=== PATIENT | male | born 1960 | race Caucasian/White ===

== ENCOUNTER 2021-02-10 13:27 | Outpatient (CLI) | payer SELFPAY ==
--- NOTE | 2021-02-10 13:39 | MR_ITS ---
WS: [id number] MRI LUMBAR SPINE NONCONTRAST TECHNIQUE: Sagittal T1, T2 and STIR imaging. Axial T1 and T2 imaging. CLINICAL INFORMATION: OTHER INTERVERTEBRAL DISC DEGENERATION, LUMBAR REGION COMPARISON: None. FINDINGS: Mild lumbar curve. No acute compression. No high-grade central canal stenosis. L1-L2: Mild annular bulging. Spinal canal and foramen are patent. L2-L3: Mild annular bulging. Mild facet arthropathy. Spinal canal and foramen are patent. L3-L4: Mild annular bulging with slight effacement of ventral thecal sac. Mild facet arthropathy. Mil d left and no significant right foraminal narrowing. L4-L5: Mild annular bulging with slight narrowing of the subarticular recess bilaterally. Slight cont act of the traversing L5 nerve roots. Moderate facet arthropathy. Small bilateral foraminal protrusio ns with mild left greater than right foraminal narrowing. Slight impingement on the exiting left L4 n erve root. L5-S1: Small lobulated synovial cyst measuring 6 x 8 mm impinges the left subarticular recess and tra versing left S1 nerve root. Moderate facet arthropathy with small facet effusions. Mild left and no s ignificant right foraminal narrowing. Small amount of periarticular edema about the left L5-S1 facets Visualized pelvic bony structures: Normal. Paravertebral soft tissues: Normal. MR/MR lumbar spine wo con* [id number] IMPRESSION: 1. 6 x 8 mm left L5-S1 synovial cyst impinges the traversing left S1 nerve keesha t in the subarticular recess. Recommend correlation left S1 nerve root symptoms . 2. Mild left L5-S1 foraminal narrowing. 3. Mild annular bulging L4-5 with slight narrowing of the subarticular recess bilaterally. 4. Left foraminal protrusion impinges the exiting left L4 nerve root with mode rate left foraminal narrowing. Correlation left L4 nerve root symptoms. 5. Moderate facet arthropathy L4-L5 and L5-S1. Small bilateral facet effusions L5-S1 with a small amount of left periarticular edema.
--- NOTE | 2021-02-10 14:33 | CT_ITS ---
WS: [id number] CTA THORACIC TECHNIQUE: Contrast enhanced CTA of the thoracic aorta with coronal and sagittal reformatted images a nd maximum intensity projection (MIP) images. CLINICAL INFORMATION: THORACIC AORTIC ECTASIA COMPARISON: None. DLP: 1547.[address] scans at [facility] use at least one of these dose optimization techniques: automated e xposure control; mA and/or kV adjustment per patient size (includes targeted exams where dose is matc hed to clinical indication); or iterative reconstruction. FINDINGS: Normal caliber ascending thoracic aorta measuring 3.2 CM. Normal caliber descending thoracic aorta. N ormal upper abdominal aorta. Proximal main pulmonary arteries are normal caliber. No evidence of diss ection or intramural hematoma. No mediastinal or hilar lymphadenopathy. Mild chronic emphysematous changes. No acute pulmonary infil trates. No focal pneumonia or pleural fluid. Noncalcified pulmonary nodule right upper lobe measuring 4 mm. Additional 3 mm noncalcified pulmonary nodule right upper lobe subpleural in location. Tiny ad ditional 2 mm subpleural noncalcified pulmonary nodule right lower lobe. Tiny noncalcified nodule in the lingula. Adrenal glands are normal. Small left upper pole renal cyst measuring 1.5 cm. Normal GE junction. Diffuse fatty infiltration the liver. Normal celiac and SMA. Proximal main renal arteries are normal. . CT/CT angio chest [id number] IMPRESSION: 1. Normal caliber ascending thoracic aorta measuring 3.2 cm. No thoracic aorti c aneurysm. Descending thoracic aorta is normal in caliber. 2. Lungs are well aerated. No acute pulmonary infiltrates. No focal pneumonia or pleural fluid. 3. A few subcentimeter noncalcified pulmonary and subpleural nodules the large st in the right upper lobe measuring 4 mm. Recommend 12 month follow-up. 4. Left upper pole renal cyst measuring 1.5 cm.
[2021-02-10] MEDS: iohexol 350 mg/mL 100 mL Btl IV (14:58)
== END 2021-02-10 13:28 | disposition home or self-care (01) ==
PROVIDERS: Visit Provider Physician Assistant
DX: M51.36 Other intervertebral disc degeneration, lumbar region (principal); I77.810 Thoracic aortic ectasia; R91.8 Other nonspecific abnormal finding of lung field; Q61.01 Congenital single renal cyst; M71.38 Other bursal cyst, other site; M51.26 Other intervertebral disc displacement, lumbar region; M47.816 Spondylosis without myelopathy or radiculopathy, lumbar region; M47.817 Spondylosis without myelopathy or radiculopathy, lumbosacral region
CPT/HCPCS: 71275; 72148; Q9967

== ENCOUNTER 2023-09-06 06:00 | Outpatient (RCR) | payer BC, SELFPAY | END 2023-09-26 23:59 | disposition home or self-care (01) | LOC: MPT 06:00 | PROVIDERS: Visit Provider Physician Assistant | DX: M70.62 Trochanteric bursitis, left hip (principal) | CPT/HCPCS: 97110; 97162; G0283 ==

== ENCOUNTER 2023-09-27 06:00 | Outpatient (RCR) | payer BC, SELFPAY | END 2023-10-27 23:59 | disposition home or self-care (01) | LOC: MPT 06:00 | PROVIDERS: Visit Provider Physician Assistant | DX: M70.62 Trochanteric bursitis, left hip (principal) | CPT/HCPCS: 97110; 97530 ==

== ENCOUNTER → 2025-03-31 09:59 | Outpatient (BNVA) | payer BC, SELFPAY | PROVIDERS: Visit Provider Orthopaedic Surgery | DX: M16.12 Unilateral primary osteoarthritis, left hip (principal) | CPT/HCPCS: 73523 ==

== ENCOUNTER 2025-04-30 15:31 | Observation (INO) | payer BC, SELFPAY ==
[2025-04-30] VITALS (15 sets, daily range): BP systolic 112–161; BP diastolic 69–104; PULSE 75–92; RESP 16–18; TEMP 36.1–36.8; O2SAT 91–97; BMI 30.6
--- NOTE | 2025-04-30 08:40 | ECG_ITS ---
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 Measurements Intervals [place] Rate: 66 P: 65 ID: [id number] QRS: -14 QRSD: 102 T: 36 QT: 404 QTc: 423 Interpretive Statements SINUS RHYTHM No previous ECG available for comparison Electronically Signed On 04-30-2025 23:51:14 RECYCLING SPECIALIST by Aicha Ace M.D. [email or web address]
--- NOTE | 2025-04-30 08:41 | W.PM.OPSUD ---
Surgery/Procedure H&P Update DATE OF PROCEDURE: April 30, 2025 DATE H&P PERFORMED: 04/29/25 H&P UPDATE INFORMATION: I have reviewed H&P completed within last 30 days, I have examined patient prior to procedure and No changes to prior documentation PLANNED PROCEDURE: Operation Date: 04/30/25 09:40 Proposed Procedures p LEFT Total Hip Arthroplasty(Left) - Frank Villagran MD
--- NOTE | 2025-04-30 08:43 | ANES.PREANE2 ---
Pre-Anesthetic Assessment Height/Weight: Height 1.83 m Weight 102.512 kg Temp Pulse Resp BP Pulse Ox O2 Del Method 97.1 F L 75 18 135/77 95 Room Air 04/30/25 07:32 04/30/25 07:32 04/30/25 07:32 04/30/25 07:32 04/30/25 07:32 04/30/25 07:32 Operation Date: 04/30/25 09:40 Proposed Procedures p LEFT Total Hip Arthroplasty(Left) - Frank Villagran MD Familial anesthetic complications: None Was Beta Nano taken within 24 hours: Yes Was Clonidine taken within 24 hours: N/A Last intake: Intake Last Liquid Date 04/29/25 Last Liquid Time 22:30 Last Solid Date 04/29/25 Last Solid Time 19:00 Social Alcohol (up to 8 beers a night) and Tobacco Exam alert, oriented x 3, clear to auscultation bilaterally and regular rate & rhythm Airway Mallampati: Class III Dentition: chipped Comments: Comments: minor CV/HEM Hypertension Patient states past history chest pains, seen cardiology and they adjusted his medications per patient, Denies any chest pains in the last three years Anesthetic Plan ASA status: 3 Anesthesia: General Risk of > 500 ml blood loss (7ml/kg in children): No Medications/Allergies Home Medications ?Medication ?Instructions ?Recorded ?Confirmed ?Last Taken ?Type nitroglycerin 0.4 mg sublingual 0.4 mg sublingual Q5M PRN Chest 03/08/21 04/30/25 Unknown History tablet Pain atorvastatin 10 mg tablet 10 mg PO DAILY 03/31/25 04/30/25 04/29/25 History carvedilol 12.5 mg tablet 12.5 mg PO BID 03/31/25 04/30/25 04/30/25 History lisinopril 40 mg tablet 40 mg PO DAILY 03/31/25 04/30/25 04/29/25 History Allergies Allergy/AdvReac Type Severity Reaction Status Date / Time No Known Allergies Allergy Unverified 03/31/25 10:08 Current Medications Generic Name Dose Route Start Last Admin Trade Name Freq PRN Reason Stop Dose Admin Sodium Chloride 1,000 mls @ 30 mls/hr 04/30/25 07:30 04/30/25 07:44 Sodium Chloride 0.9% IV 05/01/25 07:29 30 mls/hr .Q24H NAOMIE Administration PFSH Anesthesia Medical History Tobacco abuse Hyperlipidemia Hypertension History of chest pain Surgical History S/P hernia surgery Family History Other Hypertension Social History Smoking and tobacco/nicotine status: current every day tobacco/nicotine user Alcohol intake: current Alcohol intake frequency: 3 or more drinks per day Substance/Drug Use: never
[2025-04-30] MEDS: ceFAZolin 2,000 mg SDV 2000 MG IVP ×2 (09:35→17:00)
[2025-04-30] MEDS: tranexamic acid 1,000 mg/10mL SDV 1000 MG IV (10:00)
[2025-04-30] MEDS: ceFAZolin 1,000 mg SDV 1000 MG IRRIGATION (10:40)
[2025-04-30] MEDS: BUPivacaine liposome 13.3 mg/mL SDV 20 mL 266 MG INFILTRATI (11:49)
[2025-04-30] MEDS: BUPivacaine 0.5% INJ 30 mL 20 ML INJECTION (11:49)
--- NOTE | 2025-04-30 11:51 | XRR_ITS ---
PROCEDURE INFORMATION: Exam: XR Left Hip Exam date and time: 04/30/2025 1:23 PM Age: 64 years old Clinical indication: Device placement; Other: Left total hip arthroplasty; Prior surgery; Surgery date: Post-operative (0-2 days) TECHNIQUE: Imaging protocol: Radiologic exam of the left hip. Views: 1 view hip with pelvis when performed. COMPARISON: CR XR hip BI m 5V wo/w pel* [id number] 03/31/2025 10:01 AM FINDINGS: Bones/joints: Status post left total hip arthroplasty. Hardware is intact. Soft tissues: Unremarkable. XR/XR hip LT 1V wo/w pel [id number] IMPRESSION: Status post left hip arthroplasty with intact hardware.
--- NOTE | 2025-04-30 12:09 | P.OP_ITS ---
Operative Report Date of procedure: April 30, 2025 Surgeon: Frank Villagran MD Procedure: Preoperative diagnosis: End-stage degenerative joint disease left hip Postoperative diagnosis: Same Procedure: Left total hip arthroplasty Surgeon: Frank Villagran MD Lead Technical Architect: YORDY Santos's assistance was necessary for positioning the patient, assistance during the procedure, wound closure and dressing placement Anesthesia: General EBL: 120 cc Complications: None Indications: Grant is a 64-year-old white male was seen in the orthopedic clinic for debilitating left hip pain. Patient had failed all conservative measures. X-rays demonstrated [id number] presentation of the the femoral head and acetabulum. There is subchondral cysts as well as sclerosis noted on each side of the joint line. Patient had loss of internal and external rotation. Patient was unable to cross legs and could just get to 90 degrees for sitting position. Therefore this time patient was offered left total hip arthroplasty. All risk benefits treatment alternatives were discussed and the patient was agreeable to this at this time. Procedure: After obtaining written consent patient taken to the operating room placed the op table supine position general anesthetic administered. Once good anesthesia achieved patient placed up in a lateral decubitus position with left hip up. He was held in place on a pegboard that was padded appropriately. Left hip and leg were prepped and draped usual fashion. At this time surgical timeout was undertaken. Hip was then flexed to 90 degrees and a minimally invasive posterior lateral incision was made over the proximal greater trochanter. Sharp dissected gone down to subcutaneous tissue electrocautery was for hemostasis. Electrocautery was used for dissection all the way down through the IT band along the course of the lateral femur. Leg was internally rotated and dissect was taken down along the posterior aspect of the greater trochanter raising all soft tissues from it all the way down the femoral neck. Femoral neck capsule was then divided in a T-type fashion to expose the femoral head. With gentle internal rotation and traction the hip was dislocated. Appropriate deep retractors were placed that were self retainers. Proximal femur was templated for femoral neck cut and then using a sagittal saw femoral neck cut was made without any difficulties. At this point retractor was placed down to the anterior inferior lip of the acetabulum to hold the femur out from covering the acetabulum. Long handled 10 blade was then used to remove the labrum of the acetabulum. This was then reamed starting at a size 50 reamer and going up to a size 56 reamer in 1 mm increments. Reaming was done until good bleeding bone was found circumferentially within the acetabulum. All soft tissues have been sharply debrided out of the area also. Size 56 acetabular cup which is in place and impacted. Subsequently attempts were made to place the 10 degree high wall liner where having difficulties with this. Subsequently incision had to be extended to be able to visualize the acetabulum better and this was done distally. Electrocautery used for hemostasis. Once visualized it was felt that the acetabular cup was not anteverted enough and therefore extractor was applied to the acetabular cup and it was removed repositioned and impacted into the acetabulum better position. Once confirmed it was solid within the acetabulum 10 degree liner was then placed in the cup and easily secured within the acetabular cup. During this time multiple washings of pulse lavage irrigation was done while preparing the acetabulum and placed in the cup. Attention was turned towards the proximal femur. Appropriate retractor placed there. Leg was held in 90 degrees internally rotated. Box cut osteotome was used to make entry point. Power reaming was done to do the proximal lateralization. Broaching was then done starting with a 0 broach and going up to size 3 before adequate fit and fill. At this point a permanent size 3 femoral stem was placed and impacted in the proximal femur with appropriate anteversion. Once in place trial of femoral head and necks were trialed. First a standard 36 mm head with a standard neck. This was placed put within the acetabulum and hip was put to range of motion found to be stable in all positions. He had very tight abductors though. Leg lengths appear to be slightly short on the operative side and therefore hip was dislocated and a trial size +5 neck was placed and hip was reduced and found to have adequate stability and range of motion as well as improve leg length matching to the opposite leg. Hip was dislocated again and trial component removed. Area was washed closed by sterile irrigation. Is cleaned and dried and a permanent ceramic 36 mm head with a +5 neck placed on the Vasquez taper of the femoral component and impacted. Hip was reduced and again put through range of motion found to be stable. Knee bump was placed in between the legs to abduct the left leg. With slight internal rotation capsule was repaired with #1 Vicryl fhmmmh-xw-qngni sutures. Piriformis was repaired back to the greater trochanter through bone tunnels with a #5 Ethibond exjiln-xu-uorqb suture. Areas washed again. Deep retractors were removed. Deep fascia was reapproximated with #1 Vicryl dlrwfo-wg-quniz sutures. At this point local anesthetic was administered to the deep incision which included 20 cc of Exparel, 20 cc of bupivacaine, and 50 cc of saline mixed together for anesthetic effect. All this was placed within the soft tissues of the incision line. Subcutaneous tissue reapproximated 0 Vicryl interrupted sutures and skin was closed with skin chantel. Appropriate Silverlon dressing was placed on this. Patient was awakened and placed in a abduction pillow and onto a hospital bed. He was transferred to the recovery room in stable condition.
--- NOTE | 2025-04-30 13:01 | ANE.PACU2 ---
Inpatient post-anesthesia follow up: Airway intact: Yes Vital signs: Temperature 97 F Pulse Rate 77 Respiratory Rate 16 Blood Pressure 143/84 Pulse Oximetry 93 Oxygen Delivery Me thod Room Air Oxygen Flow Rate Fraction of Inspir ed Oxygen Hydration adequate: Yes Nausea and vomiting: No Pain level: 1 Mental status: Baseline
[2025-04-30] MEDS: HYDROcodone-acetaminophen 5-325 mg Tablet 1 TAB PO (14:40)
[2025-04-30] MEDS: mupirocin oint 22 gm 1 APPLIC NASAL (16:58)
[2025-04-30] MEDS: sennosides-docusate Tablet 2 TAB PO (16:59)
[2025-04-30] MEDS: chlorhexidine gluconate 0.12% Btl 473 mL 30 ML MUCOUS MEM ×2 (17:07→19:59)
[2025-05-01] VITALS: BP 117/74; PULSE 93; RESP 16; TEMP 36.7; O2SAT 95
[2025-05-01] MEDS: ceFAZolin 2,000 mg SDV 2000 MG IVP ×2 (01:17→08:51)
[2025-05-01 01:22] VITALS: RESP 16
[2025-05-01] MEDS: morphine 4 mg/mL SDV 1 mL IVP (01:22)
[2025-05-01 04:00] VITALS: BP 120/80; PULSE 99; RESP 17; TEMP 36.5; O2SAT 99
[2025-05-01] MEDS: multivitamin therapeutic Tablet 1 TAB PO (05:01)
[2025-05-01] MEDS: ATORVASTATIN 10 MG TABLET PO (05:01)
[2025-05-01] MEDS: sennosides-docusate Tablet 2 TAB PO (05:01)
[2025-05-01] MEDS: mupirocin oint 22 gm 1 APPLIC NASAL (05:03)
[2025-05-01] MEDS: chlorhexidine gluconate 0.12% Btl 473 mL 30 ML MUCOUS MEM ×2 (05:03→10:46)
[2025-05-01] MEDS: HYDROcodone-acetaminophen 5-325 mg Tablet 1 TAB PO ×3 (05:07→13:02)
[2025-05-01 05:57] LABS: Hematocrit 30.8 % (37-53); Hemoglobin 9.90 g/dL (11.27-16.99); Mean Corpuscular HGB Conc 32.1 g/dL (30-55); Mean Corpuscular Hemoglobin 31.8 pg (27-33); Mean Corpuscular Volume 99.0 fl (82-101); Nucleated Red Blood Cells % 0 %; Platelet Count 253 10^3/cmm (157-399); Red Blood Count 3.11 10^6/uL (3.85-5.65); White Blood Count 17.87 10^3/uL (3.29-11.43)
[2025-05-01 06:14] LABS: Anion Gap 17.9 (5-19); Blood Urea Nitrogen 18 mg/dL (8-23); Calcium 8.7 mg/dL (8.5-10.5); Carbon Dioxide 21 mmol/L (22-29); Chloride 99 mmol/L (98-107); Glucose 182 mg/dL (65-115); Osmolality Calculated 283 mOsm/kg (285-295); Potassium 4.9 mmol/L (3.5-5.1); Sodium 133 mmol/L (136-145)
[2025-05-01 07:02] VITALS: BP 112/70; PULSE 89; RESP 17; TEMP 36.8; O2SAT 92
[2025-05-01 11:27] VITALS: BP 115/72; PULSE 106; RESP 17; TEMP 36.7; O2SAT 96
--- NOTE | 2025-05-01 14:13 | P.DS_ITS ---
Discharge Providers Date of Admission: 04/30/25 15:31 Date of Discharge: May 01, 2025 Attending Provider at Admission: Frank Villagran MD Attending Provider at Discharge: Frank Villagran MD Primary Care Provider: Nallely Puente Reason for Visit Reason for Visit: M65.341 Brief History: Patient was admitted to the hospital for end-stage degenerative joint disease of the left hip. He was scheduled undergo a left total hip arthroplasty. Hospital Course Hospital Course Patient was admitted on 04/30/2025 and underwent the above-stated procedure. Tolerated this well. First night pain was under good control. The following day is able to work with physical therapy and be up and ambulatory using a walker with full weightbearing on the left hip. He has no complaints other than incisional pain at this time. All is going well. Patient is requesting to be discharged home now. Patient has reached all goals of inpatient physical therapy and has been cleared to be discharged home. He will continue on with home health care and follow-up in 3 weeks in my office for wound check and staple removal. At that point we will transition to outpatient physical therapy. Physical Exam Narrative: On exam today patient is up to a chair sitting without any difficulties. He is neurovasc intact distally in his left lower extremity. Dressings are dry and clear in his left hip. Urinary Catheter Management: Warren: Cath Placed During This Visit: yes, but has since been removed by the nurse Reason for Continuing Indwelling Catheter: Decision to DC Catheter Urinary Catheter Date of Insertion: 04/30/25 Urinary Catheter Time of Insertion: 09:35 Date Urinary Catheter Removed: 05/01/25 Time Urinary Catheter Discontinued: 08:20 Discharge Data Studies Completed and Pending Completed Studies During Hospitalization Category Date Time Status XR hip LT 1V [place] [id number] Routine Exams 04/30/25 11:51 Completed Pending at discharge Category Date Time Status Complete Blood Count w/Auto AM LABS Lab 05/02/25 04:00 Uncollected Complete Blood Count w/Auto AM LABS Lab 05/03/25 04:00 Uncollected Radiology Impressions Hip X-Ray 04/30/25 11:51 IMPRESSION: Status post left hip arthroplasty with intact hardware. Laboratory Results WBC 17.87 10^3/uL (3.29-11.43) H 05/01/25 05:06 RBC 3.11 10^6/uL (3.85-5.65) L 05/01/25 05:06 Hgb 9.90 g/dL (11.27-16.99) L 05/01/25 05:06 Hct 30.8 % (37-53) L 05/01/25 05:06 MCV 99.0 fl (82-101) 05/01/25 05:06 MCH 31.8 pg (27-33) 05/01/25 05:06 MCHC 32.1 g/dL (30-55) 05/01/25 05:06 RDW 12.9 % (12.1-15.1) 05/01/25 05:06 Plt Count 253 10^3/cmm (157-399) 05/01/25 05:06 MPV 9.6 fL (7.4-10.4) 05/01/25 05:06 Neut % (Auto) 84.5 % 05/01/25 05:06 Lymph % (Auto) 6.2 % 05/01/25 05:06 Baxter % (Auto) 8.7 % 05/01/25 05:06 Eos % (Auto) 0.0 % 05/01/25 05:06 Baso % (Auto) 0.2 % 05/01/25 05:06 Neut # (Auto) 15.09 10^3/uL (1.8-7.7) H 05/01/25 05:06 Lymph # (Auto) 1.1 10^3/uL (0.8-4.8) 05/01/25 05:06 Baxter # (Auto) 1.6 10^3/uL (0.2-0.9) H 05/01/25 05:06 Eos # (Auto) 0.0 10^3/uL (0.0-0.8) 05/01/25 05:06 Baso # (Auto) 0.0 10^3/uL (0.0-0.1) 05/01/25 05:06 Nucleated RBC % (auto) 0 % 05/01/25 05:06 Nucleated RBCs # 0.0 /100WBC 05/01/25 05:06 Sodium 133 mmol/L (136-145) L 05/01/25 05:06 Potassium 4.9 mmol/L (3.5-5.1) 05/01/25 05:06 Chloride 99 mmol/L (98-107) 05/01/25 05:06 Carbon Dioxide 21 mmol/L (22-29) L 05/01/25 05:06 Anion Gap 17.9 (5-19) 05/01/25 05:06 BUN 18 mg/dL (8-23) 05/01/25 05:06 Creatinine 1.0 mg/dL (0.7-1.2) 05/01/25 05:06 GFR Calculation 75.0 mL/min (90-130) L 05/01/25 05:06 Glucose 182 mg/dL (65-115) H 05/01/25 05:06 Calculated Osmolality 283 mOsm/kg (285-295) L 05/01/25 05:06 Calcium 8.7 mg/dL (8.5-10.5) 05/01/25 05:06 Procedures Performed Left total hip arthroplasty Vitals Last Vital Signs Temp 98.1 F 05/01/25 11:27 Pulse 106 H 05/01/25 11:27 Resp 17 05/01/25 11:27 BP 115/72 05/01/25 11:27 Pulse Ox 96 05/01/25 11:27 O2 Del Method Room Air 05/01/25 11:27 Discharge Plan Discharge Patient Disposition: Home Condition: Stable Prescriptions: New hydrocodone-acetaminophen 5-325 mg tablet 1 tab PO Q6H PRN (Reason: pain) Qty: 30 0RF Continued nitroglycerin 0.4 mg tablet, sublingual 0.4 mg sublingual Q5M PRN (Reason: Chest Pain) Rx Instructions: do not exceed 3 doses per episode carvedilol 12.5 mg tablet 12.5 mg PO BID atorvastatin 10 mg tablet 10 mg PO DAILY lisinopril 40 mg tablet 40 mg PO DAILY Discharge Order = DC NOW: Discharge Order (Routine); Ordered 05/01/25 Ordered By: Frank Villagran Other Ambulatory Orders: DME: Miki (Order) Location: None Selected Ordered By: Frank Villagran Referrals: Frank Villagran MD [Physician, Orthopedics] - 3 weeks Discharge Diet: Advance as tolerated Discharge Activity: Limit activity as instructed and Use walker/crutches as instructed Patient Instructions: Acute Wound Care (DC), Opioid Safety, Post Anesthesia Care, Patient Portal & Angelica Instructions Activity Restrictions/Additional Instructions: Leave dressing on until follow-up Cover wounds to shower Ice to left hip often May supplement with ibuprofen 600 to 800 mg every 6 hours Ambulate daily Follow hip precautions instructed by physical therapy Call with any concerns Must sleep with abduction pillow between legs every night Do not cross legs Discharge Attestations Time Spent in Discharge Care*: less than 30 min Quality Metrics Clinical Quality Measures [ No reported AMI, CVA or VTE this stay] Coding Level of Care Code Acute Code for Neto [place]
[2025-05-01 15:34] VITALS: BP 115/72; PULSE 106; RESP 17; TEMP 36.7; O2SAT 96
== END 2025-05-01 16:19 | disposition home health service (06) ==
LOC: MEDSURG 15:31
PROVIDERS: Admitting Provider Orthopaedic Surgery; PCP Physician Assistant; Visit Provider Orthopaedic Surgery
PROC: (CPT 27130; principal; 2025-04-30 09:10)
DX: M16.12 Unilateral primary osteoarthritis, left hip (principal); E78.5 Hyperlipidemia, unspecified; I10 Essential (primary) hypertension; Z79.82 Long term (current) use of aspirin; F17.200 Nicotine dependence, unspecified, uncomplicated
CPT/HCPCS: 27130; 36415; 51702; 73501; 80048; 85025; 93005; 97110; 97116; 97161; 97166; C1776; G0378; J0330; J0666; J0690; J1100; J1171; J1885; J2250; J2270; J2405; J2704; J3010; J3490; J3535; J7030; J9999

== ENCOUNTER → 2025-05-27 15:29 | Outpatient (BNVA) | payer BC, SELFPAY | PROVIDERS: PCP Physician Assistant; Visit Provider Orthopaedic Surgery | DX: Z96.642 Presence of left artificial hip joint (principal) | CPT/HCPCS: 73502 ==